=== PATIENT | male | born 1995 | race Caucasian/White ===

== ENCOUNTER 2017-03-31 09:12 | Emergency (ER) | payer OTHER ==
[2017-03-31 09:26] VITALS: RESP 18
[2017-03-31] MEDS ORDERED: NS 500 ML IV ONE (10:05)
[2017-03-31 10:09] LABS: % IMMATURE GRANULYOCYTES 0.3 % (0.0-1.1); ABSOLUTE IMMATURE GRANULOCYTES 0.03 10^3/uL (0.00-0.10); ADD DIFF? NO; ADD MORPH? NO; ADD SCAN? NO; ATYPICAL LYMPHOCYTE FLAG 10 (0-99); FRAGMENT RBC FLAG 0 (0-99); HEMATOCRIT 46.7 % (40.0-51.0); LEFT SHIFT FLG 0 (0-99); LIPEMIA HEMOLYSIS FLAG 90 (0-99); MEAN CELL HEMOGLOBIN CONCENTR. 34.3 g/dL (32.4-36.7); MEAN CELL VOLUME 87.5 fL (81.5-99.8); MEAN PLATELET VOLUME 10.6 fL (8.7-11.7); PLATELET CLUMPS FLAG 0 (0-99); PLATELET COUNT 251 10^3/uL (150-400); RED BLOOD CELL COUNT 5.34 10^6/uL (4.40-6.38); RED CELL DISTRIBUTION WIDTH 11.9 % (11.5-15.2)
--- NOTE | 2017-03-31 10:13 | EDPHY ---
HPI/HX/ROS/PE/MDM Narrative: CHIEF COMPLAINT: altered mental status HISTORY OF PRESENT ILLNESS: This patient is a 21 year old male arriving via EMS for evaluation of altered mental status. [place] Police found him wandering around the [employer] this morning, and called EMS. Vitals were stable in transport, BGL 104. He has a history of polysubstance abuse, and states he had alcohol, cocaine , and Xanax last night. He is not sure how he ended up here in the emergency department. He remembers walking to work early around 6:30am, and states he smoked some marijuana prior to leaving. He does not remember what happened after this. He has a white powdery residue around his mouth, and states he does not know what this is, and that he doesn't have good dental hygiene. He endorsees a mild headache, but no other complaints or trauma. No fever, chills, chest pain, shortness of breath, palpitations, vomiting, diarrhea, urinary complaints, lightheadedness. REVIEW OF SYSTEMS: Aside from elements discussed in the HPI, a comprehensive 10-point review of systems was reviewed and is negative. PAST MEDICAL HISTORY: Depression (Wellbutrin) SOCIAL HISTORY: Polysubstance abuse (cocaine, benzodiazepines, opiates, alcohol ). No heroin or methamphetamine abuse. Lives in [place]. 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 VITAL SIGNS: Reviewed by me GENERAL: Well-developed, well-nourished, resting comfortably in no respiratory distress. HEENT: Atraumatic. Eyes: Rotary nystagmus. Pupils 4mm, reactive bilaterally. No icterus, no injection. Mouth: White powdery residue on lips and tongue. Moist mucous membranes. No erythema or lesions. Neck: supple with no adenopathy. LUNGS: Clear to auscultation bilaterally, no wheezes, rhonchi or rales. CARDIAC: Regular rate and rhythm, no rubs, murmurs or gallops. ABDOMEN: Soft, nontender, nondistended, bowel sounds normal. BACK: No CVA tenderness. EXTREMITIES: No trauma. No edema. Range of motion is normal throughout. NEURO: Alert and oriented, grossly nonfocal. SKIN: Warm and dry, no rash. PSYCHIATRIC: Normal mentation, no agitation. ED Course: 21 year old male presents for evaluation of altered mental status following polysubstance abuse. Plan for EKG, labs including CBC, BMP, EtOH, and toxicology screening. Physical exam unremarkable, no evidence of trauma. 12-LEAD EKG: Please see the full report in [facility]. My interpretation: Sinus rhythm. No QRS widening. The Tox screen positive for marijuana, benzodiazepines, and cocaine. This is in accordance with the patient's described history. Labs otherwise unremarkable. Plan to discharge home in good condition when the patient is sober. Patient was observed in the emergency department. He continued to improve from a mental status standpoint. Friends were contacted and did present to the emergency department to take the patient home. Patient was mentating normally on discharge. He was encouraged to avoid illicit drugs in the future MDM: After the history was obtained and physical exam performed, the following differential for the patient's altered mental status was considered included but was not limited to hypoglycemia, electrolyte disturbances, intercranial hemorrhage, tumor, drug or alcohol intoxication, stroke, or TIA. - Data Points Laboratory Results: Laboratory Results 03/31/17 09:45 03/31/17 09:45 Medications Given: Discontinued Medications Sodium Chloride (Ns) 500 mls @ 1,000 mls/hr IV EDNOW ONE PRN Reason: Protocol Stop: 03/31/17 10:34 Last Admin: 03/31/17 10:19 Dose: 500 mls General Time Seen by Provider: 03/31/17 09:53 Initial Vital Signs: Initial Vital Signs Temperature (C) 36.6 C 03/31/17 09:20 Heart Rate 84 03/31/17 09:20 Respiratory Rate 18 03/31/17 09:20 Blood Pressure 142/96 H 03/31/17 09:20 O2 Sat (%) 96 03/31/17 09:20 O2 Delivery Mode Room Air Allergies/Adverse Reactions: No Known Allergies Allergy (Unverified 03/31/17 09:26) Home Medications: Medication Instructions Recorded Wellbutrin Sr 03/31/17 Departure - Departure Disposition: Home, Routine, Self-Care Clinical Impression: Polysubstance abuse Altered mental status, unspecified Qualifiers: Altered mental status type: unspecified Qualified Code(s): R41.82 - Altered mental status, unspecified Condition: Good Instructions: Polysubstance Abuse (ED) Additional Instructions: 1. Follow up with your primary care provider for continued concerns. 2. Please refrain from abusing drugs. 3. Return to the emergency department for fever, vomiting, confusion, headache, abdominal pain or other worsening of condition Referrals: Kiana Freeman MD [Medical Doctor] - As per Instructions Report Scribed for: Shannen Scott Report Scribed by: Leeanne Bentley Date of Report: 03/31/17 Time of Report: 10:13 Physician Review and Approval Statement: Portions of this note were transcribed by a medical reimbursement manager. I personally performed a history, physical exam, medical decision making, and confirmed accuracy of information the transcribed note.
[2017-03-31 10:18] LABS: ANION GAP 13 mEq/L (8-16); CALCIUM 9.8 mg/dL (8.5-10.4); CARBON DIOXIDE 24 mEq/l (22-31); CHLORIDE 103 mEq/L (97-110); CREATININE 1.1 mg/dL (0.7-1.3); ETHANOL SERUM < 10 mg/dL (0-10); GLOMERULAR FILTRATION RATE > 60; GLUCOSE 82 mg/dL (70-100); POTASSIUM 3.7 mEq/L (3.5-5.2); SODIUM 140 mEq/L (134-144)
--- NOTE | 2017-03-31 10:26 | CPEKG ---
Heart Rate: 54 RR Interval: 1111 P-R Interval: 148 QRSD Interval: 112 QT Interval: 416 QTC Interval: 395 P [place]: 44 QRS [place]: 7 T Wave [place]: 22 EKG Severity - ABNORMAL ECG - EKG Impression: SINUS RHYTHM EKG Impression: NONSPECIFIC INTRAVENTRICULAR CONDUCTION DELAY Electronically Signed By: Shannen Scott 31-Mar-2017 15:52:49
[2017-03-31 14:27] VITALS: BP 122/65; PULSE 74; TEMP 98.1; O2SAT 95
== END 2017-03-31 14:27 | disposition home or self-care (01) ==
DX: R41.82 Altered mental status, unspecified (principal); F19.10 Other psychoactive substance abuse, uncomplicated; E86.9 Volume depletion, unspecified
CPT/HCPCS: 80305; G0480